=== PATIENT | female | born 1985 | race Caucasian/White ===

== ENCOUNTER 2024-03-31 09:57 | Emergency (ER) | payer OTHER ==
[~2024-03-31] VITALS: Ht 157.5 cm; Wt 68.0 kg
[2024-03-31 10:01] VITALS: BP_SYST 115; PULSE 103; RESP 18; TEMP 98.3; O2SAT 98
[2024-03-31] MEDS ORDERED: ACET-2634 PO (10:33)
[2024-03-31] MEDS ORDERED: OMEP20CA15 PO (10:33)
[2024-03-31 10:46] VITALS: BP_SYST 103; PULSE 97; RESP 18; TEMP 98.4; O2SAT 98
[2024-03-31 11:22] LABS: COVID19 ANTIGEN SOFIA FIA NEGATIVE (NEGATIVE); INFLUENZA TYPE A NEGATIVE (NEGATIVE); INFLUENZA TYPE B NEGATIVE (NEGATIVE); STREPTOCOCCUS A SCREEN (RAPID) NEGATIVE (NEGATIVE)
== END 2024-03-31 10:45 | disposition home or self-care (01) ==
LOC: SED 09:57
DX: O99.612 Diseases of the digestive system complicating pregnancy, second trimester (principal); K21.9 Gastro-esophageal reflux disease without esophagitis; Z3A.20 20 weeks gestation of pregnancy; Z20.822 Contact with and (suspected) exposure to COVID-19
CPT/HCPCS: 36415; 86403; 87081; 99283